=== PATIENT | male | born 1930 | race African-American/Black ===

== ENCOUNTER 2019-10-09 14:21 | Inpatient (IN) | payer MEDICARE, OTHER ==
[~2019-10-09] VITALS: Ht 172.7 cm; Wt 75.3 kg
[2019-10-09] MEDS ORDERED: 0.9 % SODIUM CHLORIDE 10 ML DISP.SYRIN. IV PRN (14:30)
[2019-10-09] MEDS ORDERED: IV NORMAL SALINE 500ML 500 ML IV ONE (14:30)
--- NOTE | 2019-10-09 14:35 | PHYS DOC ---
Past History Additional Past Medical Histor: atrial fibrillation, congestive heart failure Adult General Chief Complaint Chief Complaint: SHORTNESS OF BREATH [facility] HPI Patient is a 89-year-old male with past medical history significant for atrial fibrillation on anticoagulation and congestive heart failure. He presents via EMS after being diverted from the [facility] due to an episode of unresponsiveness 10 minutes that started at approximately 1:45 PM. EMS also reports the patient was hypoxic. Upon their arrival he was 70% on room air on scene so he was placed on nonrebreather mask which increased his oxygen saturation to 98%. When EMS the patient had a witnessed episode of decreased level of consciousness and he was contacted prior to hitting the grou nd. This was 5 minutes prior to their arrival and he continued to have decreased responsiveness for 5 minutes upon their arrival. There've been no focal neurologic deficits or strokelike symptoms otherwise. The patient denies a headache or chest pain. Patient reports being sick over the past week with increasing shortness of breath. In the examination room the patient is currently alert and oriented and he has been placed on 6 L nasal cannula and his oxygen saturation is 98%. Review of Systems Review of Systems All other ROS is negative unless otherwise stated in HPI Physical Exam Physical Exam See above Constitutional: Well developed, well nourished, no acute distress, non-toxic appearance. [] HENT: Normocephalic, atraumatic, bilateral external ears normal, oropharynx mo ist, no oral exudates, nose normal. [] Eyes: PERRLA, EOMI, conjunctiva normal, no discharge. [] Neck: Normal range of motion, no tenderness, supple, no stridor. [] Cardiovascular: Irregularly irregular rhythm and mildly tachycardic Lungs & Thorax: Crackles bilateral bases without wheezing or rhonchi noted Abdomen: Bowel sounds normal, soft, no tenderness, no masses, no pulsatile masses. [] Skin: Warm, dry, no erythema, no rash. [] Back: No tenderness, no CVA tenderness. [] Extremities: No tenderness, no cyanosis, no clubbing, ROM intact, no edema. [] Neurologic: Alert and oriented X 3, normal motor function, normal sensory function, no focal deficits noted. [] Psychologic: Affect normal, judgement normal, mood normal. [] Current Patient Data Lab Results Laboratory Tests Test 10/09/19 14:30 10/09/19 14:40 10/09/19 15:29 White Blood Count 2.5 x10^3/uL Red Blood Count 3.78 x10^6/uL Hemoglobin 11.0 g/dL Hematocrit 35.7 % Mean Corpuscular Volume 95 fL Mean Corpuscular Hemoglobin 29 pg Mean Corpuscular Hemoglobin Concent 31 g/dL Red Cell Distribution Width 15.5 % Platelet Count 132 x10^3/uL Neutrophils (%) (Auto) 87 % Lymphocytes (%) (Auto) 7 % Monocytes (%) (Auto) 6 % Eosinophils (%) (Auto) 0 % Basophils (%) (Auto) 1 % Neutrophils # (Auto) 2.1 x10^3uL Lymphocytes # (Auto) 0.2 x10^3/uL Monocytes # (Auto) 0.1 x10^3/uL Eosinophils # (Auto) 0.0 x10^3/uL Basophils # (Auto) 0.0 x10^3/uL Troponin I Quantitative 0.026 ng/mL Influenza Type A (Rapid) Negative Influenza Type B (Rapid) Negative Lactic Acid Level 2.3 mmol/L Prothrombin Time 12.8 SEC Prothromb Time International Ratio 1.2 Activated Partial Thromboplast Time 25 SEC D-Dimer (Serina) 2.62 mg/L Sodium Level 143 mmol/L Potassium Level 4.9 mmol/L Chloride Level 100 mmol/L Carbon Dioxide Level 40 mmol/L Anion Gap 3 Blood Urea Nitrogen 56 mg/dL Creatinine 2.1 mg/dL Estimated GFR (Cockcroft-Gault) 36.3 BUN/Creatinine Ratio 27 Glucose Level 159 mg/dL Calcium Level 8.4 mg/dL Total Bilirubin 0.4 mg/dL Aspartate Amino Transf (AST/SGOT) 13 U/L Alanine Aminotransferase (ALT/SGPT) 14 U/L Alkaline Phosphatase 70 U/L Creatine Kinase 20 U/L Creatine Kinase MB (Mass) 1.3 ng/mL Creatine Kinase MB Relative Index 6.5 % [id number]-Type Natriuretic Peptide 10564 pg/mL Total Protein 6.7 g/dL Albumin 3.0 g/dL Albumin/Globulin Ratio 0.8 Current Medications Medications (Trade) Dose Ordered Sig/Mitchell Route PRN Reason Start Time Stop Time Status Last Admin Dose Admin Sodium Chloride (Normal Saline Flush) 10 ml QSHIFT PRN IV AFTER MEDS AND BLOOD DRAWS 10/09/19 14:30 Sodium Chloride 500 ml @ 0 mls/hr 1X ONCE IV 10/09/19 14:30 10/09/19 15:41 DC EKG EKG EKG shows an irregularly irregular rhythm with a ventricular rate of around 94 with no discernible P waves. There are some nonspecific ST changes in the lateral leads without ST elevation.[] Radiology/Procedures Radiology/Procedures Exam performed: One view chest HISTORY: Hypoxia DATE OF SERVICE: 10/09/2019. COMPARISON: None available Single AP upright portable view chest findings: Diffuse bilateral airspace opacities are seen in the perihilar regions and lung bases with probable bilateral pleural effusions. The cardiac silhouette and diaphragms are obscured due to the pulmonary opacities. There is no pneumothorax. IMPRESSION: Diffuse bilateral perihilar and basilar pulmonary opacities likely diffuse infiltrates or CHF. Correlate clinically. Electronically signed by: Sumi Valencia MD (10/09/2019 3:28 PM) [facility][] STUDY: CT head without contrast INDICATION: Loss of consciousness. COMPARISON: None. TECHNIQUE: Axial CT imaging through the head without the use of intravenous contrast. Sagittal and coronal reformats were obtained. One or more of the following individualized dose reduction techniques were utilized for this examination: 1. Automated exposure control 2. Adjustment of the mA and/or kV according to patient size 3. Use of iterative reconstruction technique. FINDINGS: No acute intracranial hemorrhage. Ma-white matter differentiation is maintained. No mass effect, midline shift or hydrocephalus. Parenchymal volume loss. Intracranial atherosclerotic calcifications. Intact calvarium. Partially visualized chronic osseous findings at the atlantodental interval and dorsal to the tip of the dens. IMPRESSION: No acute intracranial abnormality by CT. Electronically signed by: PAUL WOMACK MD (10/09/2019 3:28 PM) [id number] Course & Med Decision Making Course & Med Decision Making Pertinent Labs and Imaging studies reviewed. (See chart for details) Patient seen for decreased level of consciousness and increased shortness of breath. At this time we will get a CT scan of the patient's head and initiate a septic workup. We'll start with gentle IV fluid hydration for now as pressure is 138/58 and he does have crackles in the bases of his lungs with a history of congestive heart failure. 1644: Patient was consulted at this time and he does appear to be in congestive heart failure. His BNP is rather elevated and his creatinine is elevated as well. In August his creatinine was 1.6 and today is 2.1. He is currently on 6 L nasal cannula and his oxygen and saturation has been in the low to mid 90s. He is in no respiratory distress. We'll give 40 mg of IV Lasix as he does take 40 mg oral daily. Remainder the patient's workup is unremarkable except for leukopenia and chemotherapy which is consistent with the patient's history. On review the patient's records it is discovered that he also has monoclonal gammopathy of unknown significance. 1722: I spoke to the hospitalist who accepts admission. We'll order a VQ scan on bridge orders due to elevated d-dimer. Patient will receive the one-time dose of Lasix only for right now. He does have pancytopenia but this is chronic secondary to his monoclonal gammopathy. Dragon Disclaimer Dragon Disclaimer This electronic medical record was generated, in whole or in part, using a voice recognition dictation system. Departure Departure: Impression: Primary Impression: CHF exacerbation Additional Impressions: Pancytopenia Hypoxia Elevated d-dimer Unresponsiveness Disposition: ADMITTED INPATIENT Admitting Physician: Sohail Ray Condition: STABLE Referrals: PCP,NO (PCP) Problem Qualifiers JOSE JUAN IBRAHIM DO Oct 09, 2019 14:35
[2019-10-09 15:03] LABS: BASO % 1 % (0-3); EOS % 0 % (0-3); HEMATOCRIT 35.7 % (39.0-53.0); LYMPH # 0.2 x10^3/uL (1.0-4.8); LYMPH % 7 % (24-48); MEAN CORPUSCULAR HEMOGLOBIN 29 pg (25-35); MEAN CORPUSCULAR HGB CONC 31 g/dL (31-37); MEAN CORPUSCULAR VOLUME 95 fL (79-100); MONO # 0.1 x10^3/uL (0.0-1.1); MONO % 6 % (0-9); NEUT # 2.1 x10^3uL (1.8-7.7); NEUT % 87 % (31-73); PLATELET COUNT 132 x10^3/uL (140-400); RED BLOOD COUNT 3.78 x10^6/uL (4.30-5.70); RED CELL DISTRIBUTION WIDTH 15.5 % (11.5-14.5); WHITE BLOOD COUNT 2.5 x10^3/uL (4.0-11.0)
[2019-10-09 15:30] LABS: INFLUENZA A PATIENT NEGATIVE (NEGATIVE); INFLUENZA B PATIENT NEGATIVE (NEGATIVE)
--- NOTE | 2019-10-09 15:31 | RAD ---
STUDY: CT head without contrast INDICATION: Loss of consciousness. COMPARISON: None. TECHNIQUE: Axial CT imaging through the head without the use of intravenous contrast. Sagittal and coronal reformats were obtained. One or more of the following individualized dose reduction techniques were utilized for this examination: 1. Automated exposure control 2. Adjustment of the mA and/or kV according to patient size 3. Use of iterative reconstruction technique. FINDINGS: No acute intracranial hemorrhage. Ma-white matter differentiation is maintained. No mass effect, midline shift or hydrocephalus. Parenchymal volume loss. Intracranial atherosclerotic calcifications. Intact calvarium. Partially visualized chronic osseous findings at the atlantodental interval and dorsal to the tip of the dens. IMPRESSION: No acute intracranial abnormality by CT. Electronically signed by: PAUL WOMACK MD (10/09/2019 3:28 PM) [id number]
--- NOTE | 2019-10-09 15:31 | RAD ---
Exam performed: One view chest HISTORY: Hypoxia DATE OF SERVICE: 10/09/2019. COMPARISON: None available Single AP upright portable view chest findings: Diffuse bilateral airspace opacities are seen in the perihilar regions and lung bases with probable bilateral pleural effusions. The cardiac silhouette and diaphragms are obscured due to the pulmonary opacities. There is no pneumothorax. IMPRESSION: Diffuse bilateral perihilar and basilar pulmonary opacities likely diffuse infiltrates or CHF. Correlate clinically. Electronically signed by: Sumi Valencia MD (10/09/2019 3:28 PM) [facility]
[2019-10-09 15:55] LABS: CALCIUM 8.4 mg/dL (8.5-10.1); CREATININE 2.1 mg/dL (0.7-1.3); GFR 36.3; POTASSIUM 4.9 mmol/L (3.5-5.1)
[2019-10-09 16:09] LABS: ALBUMIN/GLOBULIN RATIO 0.8 (1.0-1.7); TOTAL BILIRUBIN 0.4 mg/dL (0.2-1.0); TOTAL PROTEIN 6.7 g/dL (6.4-8.2)
[2019-10-09] MEDS ORDERED: FUROSEMIDE 40 MG/4 ML VIAL IVP ONE (16:45)
[2019-10-09] MEDS ORDERED: FUROSEMIDE 40 MG/4 ML VIAL ONE (16:46)
[2019-10-09] MEDS ORDERED: ALLO100T PO (16:56)
[2019-10-09] MEDS ORDERED: ALEN70TA6 PO (16:56)
[2019-10-09] MEDS ORDERED: CHOL3000 PO (17:01)
[2019-10-09] MEDS ORDERED: DILT120C99 PO (17:01)
[2019-10-09] MEDS ORDERED: DIGO125T17 PO (17:01)
[2019-10-09] MEDS ORDERED: CALC500T31 PO (17:01)
[2019-10-09] MEDS ORDERED: APIX2.5T PO (17:01)
[2019-10-09] MEDS ORDERED: LOSA100T14 PO (17:01)
[2019-10-09] MEDS ORDERED: FURO40TA4 PO (17:01)
--- NOTE | 2019-10-09 17:35 | EKG ---
[address] [address] Test Date: 2019-10-09 Test Time: 14:35:08 Pat Name: SHIVA BRAMBILA Department: Room: Gender: M Benefits Analyst: : [id number] Requested By: JOSE JUAN IBRAHIM Order Number: [id number] Reading MD: Measurements Intervals [place] Rate: 94 P: ND: QRS: 51 QRSD: 82 T: -72 QT: 298 QTc: 377 Interpretive Statements IRREGULAR RHYTHM, NO P-WAVE FOUND VENTRICULAR PREMATURE COMPLEX(ES) QRS(T) CONTOUR ABNORMALITY CONSISTENT WITH ANTEROSEPTAL INFARCT AGE UNDETERMINED T ABNORMALITY IN ANTEROLATERAL LEADS INFEROLATERAL LEADS ABNORMAL ECG RI6.01 No previous ECG available for comparison
[2019-10-09 19:12] VITALS: BP 126/62
[2019-10-09] MEDS ORDERED: LIDO700A21 TP (19:31)
[2019-10-09] MEDS: APIXABAN 2.5 MG TABLET PO SCH (20:35)
--- NOTE | 2019-10-09 20:39 | RAD ---
Indication: Elevated d-dimer and hypoxia Technique: Static images are obtained of both lungs following inhalation of 10.8 mCi of xenon and again following IV administration of 5.5 mCi of 99 M technetium MAA. Comparison: Chest x-ray from same day Findings: Numerous bilateral perfusion and ventilation defects are identified. Some of these are better seen on the oblique and lateral images of the perfusion therefore cannot assess whether they are matched or not. There are some triple matched defects in the lower lungs Impression: 1. Numerous bilateral perfusion and ventilation defects are identified including triple matched defects in the lower lungs. Some of the perfusion defects are better seen on the oblique and lateral images therefore cannot assess whether they are matched or not. Overall intermediate probability of pulmonary embolus. Electronically signed by: Abhijeet Zaragoza MD (10/09/2019 8:36 PM) [id number]
[2019-10-10] VITALS: BP 130/52
[2019-10-10 06:00] VITALS: BP 135/50
[2019-10-10] MEDS ORDERED: LOSARTAN 50 MG TABLET. PO SCH (09:00)
[2019-10-10] MEDS ORDERED: DIGOXIN 125 MCG TABLET PO SCH (09:00)
[2019-10-10] MEDS: APIXABAN 2.5 MG TABLET PO SCH (09:00)
[2019-10-10] MEDS ORDERED: LIDOCAINE (700MG/PATCH) PATCH. TP SCH (09:00)
[2019-10-10] MEDS ORDERED: FUROSEMIDE 40 MG TABLET PO SCH (09:00)
[2019-10-10] MEDS ORDERED: CALCIUM CARBONATE 500 MG TABLET PO SCH (09:00)
[2019-10-10] MEDS ORDERED: CHOLECALCIFEROL (VITAMIN D3) 1,000 UNIT TABLET PO SCH (09:00)
[2019-10-10] MEDS ORDERED: ALLOPURINOL 100 MG TABLET. PO SCH (09:00)
[2019-10-10 11:00] VITALS: BP 129/51
[2019-10-10 12:17] LABS: BGAS PH 7.21 (7.35-7.46)
[2019-10-10 13:57] LABS: BGAS PH 7.27 (7.35-7.46)
[2019-10-10 14:05] LABS: HEMATOCRIT 31.3 % (39.0-53.0); HEMOGLOBIN 9.6 g/dL (13.0-17.5); RED BLOOD COUNT 3.28 x10^6/uL (4.30-5.70); RED CELL DISTRIBUTION WIDTH 15.3 % (11.5-14.5); WHITE BLOOD COUNT 2.8 x10^3/uL (4.0-11.0)
[2019-10-10 14:10] LABS: CALCIUM 8.3 mg/dL (8.5-10.1); CREATININE 2.9 mg/dL (0.7-1.3); POTASSIUM 5.7 mmol/L (3.5-5.1)
[2019-10-10 14:16] LABS: ALBUMIN 2.8 g/dL (3.4-5.0); ALBUMIN/GLOBULIN RATIO 0.8 (1.0-1.7); TOTAL BILIRUBIN 0.5 mg/dL (0.2-1.0); TOTAL PROTEIN 6.2 g/dL (6.4-8.2)
[2019-10-10] MEDS ORDERED: MIDAZOLAM HCL 50 MG in IV NORMAL SALINE 50ML 50 ML IV PRN (15:00)
[2019-10-10 15:11] VITALS: BP 104/49
[2019-10-10] MEDS ORDERED: CALCIUM GLUCONATE 1,000 MG/10 ML VIAL IV ONE (15:30)
[2019-10-10] MEDS ORDERED: SODIUM BICARBONATE 50 MEQ/50 ML VIAL. IV ONE (15:30)
[2019-10-10 15:31] LABS: AMORPHOUS SEDIMENT,UR PRESENT /HPF; BACTERIA,URINE 0 /HPF (0-FEW); BILIRUBIN,URINE NEG (NEG); CLARITY,URINE CLOUDY; COLOR,URINE AMBER; GLUCOSE,URINE NEG (NEG); HYALINE CASTS, URINE FEW /HPF; NITRITE,URINE NEG (NEG); RBC,URINE 0 /HPF (0-2); SQUAMOUS EPITHELIAL CELL,UR OCC /LPF; UROBILINOGEN,URINE 0.2 mg/dL (0.2 mg/dL); WBC,URINE 0 /HPF (0-4)
--- NOTE | 2019-10-10 17:12 | HP ---
ADMIT DATE: 10/10/2019 HISTORY OF PRESENT ILLNESS: The patient is an 89-year-old -[place] male patient who came to the Emergency Room by EMS as he was directed from [facility] due to an episode of unresponsiveness for about 10 minutes that started approximately at 1:45 p.m. Emergency medical services also reported the patient was hypoxic upon their arrival. He was only 70% on room air on the scene, so he was placed on nonrebreather mask and that increased his oxygen saturation to 98%. When they arrived there, prior to hitting the ground, this was 5 minutes prior to arrival and he continued to have decreased level of consciousness for about 5 minutes upon their arrival. There have been no focal deficit or stroke-like symptoms. Otherwise, the patient denied any headache or chest pain. He reported that he has been sick over the past week with increasing shortness of breath. By the time he arrived to the Emergency Room, he was on 6 liters of oxygen by nasal cannula. His oxygen saturation was 98%. He was extensively investigated in the Emergency Room. His white cell count and platelets were low. His D-dimer was high at 2.62 and his chemistry showed that he has chronic kidney disease. His CT scan of the head was unremarkable and chest x-ray showed that he has bilateral perihilar and basilar pulmonary opacities, likely diffuse infiltrate or congestive heart failure. The cardiac silhouette and diaphragms are obscured due to pulmonary opacities. There is no pneumothorax. The patient was admitted with altered mental status, acute hypoxic respiratory failure, acute on chronic congestive heart failure, pancytopenia and impaired kidney function. His D-dimer was elevated. He has had a V/Q scan, which showed that the patient has numerous bilateral perfusions, ventilation defects are identified including triple matched defects in the lower lungs. Some of the perfusion defects are better seen on the oblique and lateral images, therefore, cannot assess whether they are matches or not overall intermediate probability of pulmonary emboli. PAST MEDICAL HISTORY: Significant for hyperlipidemia, mitral regurgitation, essential hypertension, obesity, thrombocytopenia. He has an incipient cataracts, prostate cancer, chronic kidney disease, type 2 diabetes with diabetic nephropathy, hypertensive renal disease, proteinuria, postherpetic neuralgia, allergic rhinitis. He has colonic polyps, gout, duodenal ulcer disease, vitamin D deficiency, monoclonal gammopathy of uncertain significance, atrial fibrillation. He has chronic diastolic heart failure, acute on chronic hypoxic respiratory failure, aortic valve disorder, primary cardiomyopathy and microscopic hematuria. PAST SURGICAL HISTORY: Apparently unremarkable. ALLERGIES: He is allergic to SIMVASTATIN and TAMSULOSIN. MEDICATIONS: He is currently on following medications: He is on apixaban 2.5 mg twice a day, digoxin 125 mcg once a day, diltiazem hydrochloride 120 mg once a day, losartan potassium 100 mg p.o. daily, calcium carbonate 500 mg daily, furosemide 40 mg daily, lidocaine patch topically on for 12 hours and off for 12 hours, cholecalciferol (vitamin D3) 2000 International Unit once a day, allopurinol 200 mg once a day, alendronate sodium 70 mg once a week. FAMILY HISTORY: Unobtainable. SOCIAL HISTORY: He is a , currently lives in a home. His code status is DNR/DNI; however, we spoke to his family. PHYSICAL EXAMINATION: GENERAL: On arrival to the Emergency Room, the patient was pale, but no jaundice, cyanosis or thyromegaly. No jugular venous distention. No lower limb edema. VITAL SIGNS: His heart rate was 96, blood pressure 138/58, temperature 97.8, respiratory rate 20 and oxygen saturation was 95% on 6 liters of oxygen. HEAD, EYES, EARS, NOSE AND THROAT: Showed normocephalic, atraumatic. NECK: Supple. HEART: Showed normal first and second heart sounds. No gallop or murmur. CHEST: Clear to auscultation. No crepitation or rhonchi. ABDOMEN: Distended, soft, nontender. NEUROLOGIC: He was apparently awake, alert, able to communicate and all his cranial nerves are intact. EXTREMITIES: He moves extremities without difficulty. LABORATORY DATA: His lab work on arrival showed white cell count of 2500, hemoglobin 11, hematocrit 36, MCV 95 and platelet count 232,000 with normal manual differential. His prothrombin time was 12.8, INR 1.2, aPTT was 25. D-dimer was 2.62. Serum sodium was 143, potassium 4.9, chloride 100, bicarbonate 40, anion gap of 3, BUN 56, creatinine 2.1, estimated GFR was 36 mL per minute. His glucose 159, lactic acid was 2.3. His calcium was 8.4. Total bilirubin, AST, ALT, alkaline phosphatase were normal. His beta natriuretic peptide was 11,349. First troponin was 0.026. Total protein was 6.7, albumin 3. His influenza A and B were negative. He has had a CT scan of the head, which basically showed no acute intracranial hemorrhage, yun and white matter differentiation is maintained, no mass effect, midline shift or hydrocephalus, parenchymal volume loss, intracranial atherosclerotic calcification intact, calvarium partially visualized, chronic osseous finding at the atlantodental interval and dorsal with tip of the dens. His chest x-ray showed that there is bilateral airspace opacities are seen in the perihilar region and lung bases with probable bilateral pleural effusion. The cardiac silhouette and diaphragms are obscured due to the pulmonary opacities. There is no pneumothorax. He did have lung ventilation perfusion scan, which basically showed numerous bilateral perfusion and ventilation defects identified including triple matched defects in the lower lungs. Some of the perfusion defects are better seen on the oblique and lateral images, therefore, cannot assess whether they match or not overall intermediate probability of pulmonary embolism; however, the patient is already on apixaban. ASSESSMENT AND PLAN: So, the patient was admitted with acute hypoxic respiratory failure, altered mental status, acute on chronic congestive heart failure, pancytopenia and elevated D-dimer; however, he is already on apixaban. The patient was continued on all his medications that included losartan 100 mg once a day, vitamin D 2000 International Unit once a day, lidocaine patch applied topically as needed, furosemide 40 mg once a day, diltiazem 120 mg daily, digoxin 125 mcg once a day, calcium carbonate 500 mg daily, allopurinol 200 mg once a day, apixaban 2.5 mg once a day. We will obviously consult the Cardiology team to assist with his management. His first set of cardiac enzyme was less than 0.026. VALERIE CLEMENTS MD DR: AMBER/sal JOB#: [id number] / [id number]
--- NOTE | 2019-10-10 17:41 | PDOC ---
PROVIDER NOTE PROVIDER NOTE PROVIDER NOTE Cardiology consultation note Reason for consultation heart failure History of present illness 89-year-old man with past medical history as noted below comes into the hospital in the setting of worsening shortness of breath over the last 2-3 weeks. History is limited due to the patient's somnolence and hypercapnic respiratory failure and most of the history was obtained from the patient's son. The patient has not been complaining of any chest pain but has had progressive dyspnea. He has been compliant with his medications. He is followed at the [facility] normally. Upon evaluation by a family member he was noted to be obtunded and brought emergently to the hospital. He was noted to have hypercapnia and was initiated on BiPAP therapy and he was also noted to have acute renal failure. Past medical history: 1. 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 Chronic kidney disease with baseline creatinine of 1.6-1.8 currently with acute kidney injury 3. Hypertension 4. Dyslipidemia 5. Paroxysmal atrial fibrillation on Eliquis therapy Social history no recent alcohol, tobacco or illicit drug use. He lives by himself. Family history is noncontributory Allergies reviewed Current cardiovascular medicationsunknown Physical examination Vital signs stable He is somnolent and not arousable Head and neck exam is unremarkable Cardiac regular rate and rhythm Diffuse bilateral rhonchi Soft abdomen No significant edema Nonfocal neurologic exam although the deferred fully due to his somnolence Labs reviewed with the hypercapnic respiratory failure and acute renal failure EKG reviewed. He had one episode of nonsustained ventricular tachycardia Impression: 1. Acute on chronic systolic and diastolic heart failure with chronic bilateral pleural effusions which appear to be worsening currently 2. Acute kidney failure 3. Acute on chronic respiratory failure Recommendations: 1. I discussed excessively with the son regarding his poor prognosis given his multiorgan failure. We discussed the possibility of progressive respiratory failure needing intubation versus progressive renal failure requiring dialysis. At this present time given his volume overload by chest x-ray and significant hypercapnic failure we will initiate diuretic therapy and I discussed with the family that should his renal function worsen he may need additional support with dialysis. They understand the overall risks and benefits of aggressive care versus conservative management and are willing to proceed. We will plan for transfer to [facility] for further evaluation. KG CASTELLON MD Oct 10, 2019 17:41
--- NOTE | 2019-10-11 00:44 | DS ---
DATE OF DISCHARGE: 10/10/2019 HOSPITAL COURSE: The patient is an 89-year-old -[place] male patient who was admitted through the Emergency Room with altered mental status. Initial investigation showed that he has acute on chronic hypoxic hypercapnic respiratory failure, has also acute on chronic kidney injury, acute on chronic diastolic congestive heart failure. His level of consciousness deteriorated again and while in the ICU, he has had blood gases done, which showed that his pH was 7.21, pCO2 of 107, pO2 of 79, bicarbonate was 42 and oxygen saturation was 91% on FiO2 of 36%. So, we did put him on BiPAP machine and his blood gas is slightly better. The patient is clinically more awake, alert, interactive and responding properly. His kidney function has also worsened. His potassium is up to 5.7. His BUN is 71, creatinine 2.9 and therefore, a decision was made to transfer [facility]. When I saw him this afternoon, he was actually resting slightly propped up in bed, in no apparent respiratory distress, on BiPAP machine, maintaining his oxygen saturation 98% on FiO2 of 35%. PHYSICAL EXAMINATION: HEAD, EYES, EARS, NOSE AND THROAT: Showed normocephalic, atraumatic. NECK: Supple. HEART: Showed normal first and second heart sounds. No gallop or murmur. CHEST: Showed central trachea, equally reduced expansion, reduced air entry, vesicular sounds with bilateral basal crepitation. I could not appreciate any rhonchi. ABDOMEN: Distended, soft, nontender. NEUROLOGIC: He was more awake, alert, responding appropriately. All cranial nerves intact. EXTREMITIES: He moves extremities without difficulty. VITAL SIGNS: His heart rate was 87, blood pressure was 104/49, temperature was 97.8, respiratory rate 14, and oxygen saturation was 98% on FiO2 of 35% on BiPAP machine. LABORATORY DATA: Showed his white cell count was 2800, hemoglobin was 9.6, hematocrit 31, MCV 95, and platelet count of 127,000. Serum sodium 142, potassium 5.7, chloride 100, bicarbonate 43, anion gap 1, BUN 71, creatinine 2.9, estimated GFR was 25 mL per minute. His glucose was 99, calcium was 8.3. Total bilirubin, AST, ALT, alkaline phosphatase were normal. His troponin has risen to 0.099 from 0.026. His total protein was 6.2, albumin 2.1. The patient was transferred to [facility] as he probably will require dialysis as well as perhaps intubation and mechanical ventilation. We will hold his apixaban and continue with all other medication. FINAL DISCHARGE DIAGNOSES: 1. Acute on chronic hypoxic hypercapnic respiratory failure. 2. Acute on chronic diastolic congestive heart failure. 3. Acute on chronic renal failure, pancytopenia, elevated D-dimer; however, the patient is already on apixaban and he has also elevated troponin. VALERIE CLEMENTS MD DR: AMBER/sal JOB#: [id number] / [id number]
[2019-10-16] MEDS ORDERED: NON FORMULARY ITEM (Alendronate Sodium 1 TAB) PO SCH (09:00)
== END 2019-10-10 14:00 | disposition short-term general hospital (02) | DRG 189 ==
LOC: ER 14:21 → ICU 18:04
PROVIDERS: ADMIT Internal Medicine; ATTEND Internal Medicine
PROC: 5A09357 Assistance with Respiratory Ventilation, Less than 24 Consecutive Hours, Continuous Positive Airway Pressure (ICD-10-PCS; principal; 2019-10-10)
DX: J96.21 Acute and chronic respiratory failure with hypoxia (principal); I50.43 Acute on chronic combined systolic (congestive) and diastolic (congestive) heart failure; I13.0 Hypertensive heart and chronic kidney disease with heart failure and stage 1 through stage 4 chronic kidney disease, or unspecified chronic kidney disease; D61.818 Other pancytopenia; N17.9 Acute kidney failure, unspecified; J96.22 Acute and chronic respiratory failure with hypercapnia; N18.9 Chronic kidney disease, unspecified; E78.5 Hyperlipidemia, unspecified; Z66 Do not resuscitate; I48.0 Paroxysmal atrial fibrillation; E55.9 Vitamin D deficiency, unspecified; M10.9 Gout, unspecified; Z85.46 Personal history of malignant neoplasm of prostate; Z87.19 Personal history of other diseases of the digestive system; Z87.11 Personal history of peptic ulcer disease; Z79.01 Long term (current) use of anticoagulants; Z79.899 Other long term (current) drug therapy; Z88.8 Allergy status to other drugs, medicaments and biological substances
CPT/HCPCS: 36415; 70450; 71045; 78582; 80053; 81001; 82553; 82803; 83605; 83874; 83880; 84484; 85025; 85027; 85379; 85610; 85730; 87040; 87804; 93005; 94660; 96374; 99285; A9540; A9558; J1940